=== PATIENT | male | born 1960 | race Caucasian/White ===

== ENCOUNTER 2024-07-07 16:59 | Emergency (ER) | payer MEDICAID, SELFPAY ==
[2024-07-07 17:09] VITALS: BP 148/88; PULSE 84; RESP 18; TEMP 36.4; O2SAT 95; BMI 27.0
[2024-07-07 17:15] VITALS: BP 142/84; PULSE 82; RESP 16; O2SAT 99
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
--- NOTE | 2024-07-07 17:27 | PC.NURSE ---
REFUSING TO HAVE IV STARTED AFTER NURSE ATTEMPTED (PT MOVED DUEING IV ATTEMPT). YELLED AT NURSE TO QUIT PUTTING PRESSURE ON MY HAND. EXPLAINED THAT NURSE HOLDING PRESSURE TO PREVENT BLEEDING. Candie N/P INFORMED THAT PT REFUSING IV
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
[2024-07-07] MEDS: SODIUM CHLORIDE 0.9% 1000 ML 1,000 ML 999 ML IV (17:47)
[2024-07-07] MEDS: ONDANSETRON INJ 2 MG/ML INJ 2 ML 4 MG IV (17:47)
[2024-07-07] MEDS: MORPHINE SULF INJ 10 MG/ML VIAL 6 MG IVP (17:50)
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
[2024-07-07 18:00] VITALS: BP 139/75; PULSE 81; RESP 19; O2SAT 95
[2024-07-07 18:20] VITALS: BP 131/78; PULSE 72; RESP 15; O2SAT 99
--- NOTE | 2024-07-07 18:20 | PC.NURSE ---
dressing left side facial wounds with adaptic and bacitracin, then fluff gauze and covered all with mask made from bandnet stretchy gauze. while doing dressing change pt started to c/o air in stomach and chest and abd pain. states i don't feel right and you need to stop giving me the morphine. informed pt that nurse no longer giving morphine and will inform provider of his complaint.
--- NOTE | 2024-07-07 18:20 | PC.NURSE ---
all information faxed to [facility], [facility] also sent to [facility] for transfer
--- NOTE | 2024-07-07 18:23 | PC.NURSE ---
joseph Carroll n/p if he wants ekg done and nurse told no
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
--- NOTE | 2024-07-07 18:31 | PC.NURSE ---
RADHA N/P AGAIN INFORMED THAT PT NOW WITH C/O CHEST PAIN AND STOMACH FEELING HARD. RADHA SAID THANK YOU.
--- NOTE | 2024-07-07 18:35 | PC.NURSE ---
RADHA N/P IN TO TALK WITH PT
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
[2024-07-07 18:48] VITALS: TEMP 36.4
[2024-07-07 19:30] VITALS: BP 143/83; PULSE 80; RESP 17; TEMP 36.4; O2SAT 95
== END 2024-07-07 19:30 | disposition home or self-care (01) ==
PROVIDERS: Emergency Provider Emergency Medicine; PCP Family Medicine
DX: T20.20XA Burn of second degree of head, face, and neck, unspecified site, initial encounter (principal)
CPT/HCPCS: 93005; 96361; 96374; 96375; 99284; J2270; J2405; J7030

== ENCOUNTER 2025-06-27 14:15 | Emergency (ER) | payer MEDICAID, SELFPAY ==
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
--- NOTE | 2025-06-27 14:39 | PC.NURSE ---
PATIENT REFUSED ANY VITAL SIGNS OR CARE BY PROVIDER. PATIENT DISCHARGED BY SWATI GARCIA. DENTAL LABORATORY ASSISTANT AWARE AND GIVEN ALL DISCHARGE PAPERWORK
== END 2025-06-27 14:43 ==
LOC: SERX 14:47
PROVIDERS: Emergency Provider Emergency Medicine
DX: Z02.89 Encounter for other administrative examinations (principal); L50.9 Urticaria, unspecified
CPT/HCPCS: 99281